=== PATIENT | male | born 1960 | race Caucasian/White ===

== ENCOUNTER 2017-02-23 15:22 | Emergency (ER) | payer SELFPAY ==
[~2017-02-23] VITALS: Ht 177.8 cm; Wt 75.0 kg
[2017-02-23 16:38] LABS: HEMATOCRIT 46.6 % (38.0-50.0); MCH 31.7 PG (29.0-34.0); MCHC 33.9 G/DL (30.0-36.0); MCV 93.4 FL (86-99); MEAN PLAT.VOLUME 9.8 uM^3 (9.0-12.4); PLATELET COUNT 219 K/uL (156-360); RBC DIS.WIDTH-CV 12.2 % (11.8-14.6); RBC DIS.WIDTH-SD 42.3 % (39-53); RED BLOOD COUNT 4.99 M/uL (4.00-5.50); WHITE BLOOD COUNT 7.7 K/uL (4.1-10.2)
[2017-02-23 16:48] LABS: CHLORIDE 102 mEq/L (99-109); POTASSIUM 3.9 mEq/L (3.7-5.4); SODIUM 140 mEq/L (136-147)
[2017-02-23 16:50] LABS: GLUCOSE 101 mg/dL (70-99)
[2017-02-23 16:51] LABS: ANION GAP 12 MEQ/L (2-14)
[2017-02-23 16:55] LABS: UREA NITROGEN (BUN) 10 mg/dL (9-23)
[2017-02-23 17:00] LABS: TROP-I INTERPRETATION NEGATIVE; TROPONIN-I < 0.01 ng/mL (0.0-0.30)
[2017-02-23 17:06] LABS: GFR ESTIMATE (CALCULATED) > 59 mL/min/
[2017-02-23] MEDS ORDERED: VENTOLIN HFA18 GM IH (17:25)
[2017-02-23 19:20] LABS: TROP-I INTERPRETATION NEGATIVE; TROPONIN-I < 0.01 ng/mL (0.0-0.30)
[2017-02-23 20:46] VITALS: BP 101/67
== END 2017-02-23 20:47 | disposition home or self-care (01) ==
LOC: EME 15:22
PROVIDERS: Emergency Medicine
DX: R07.89 Other chest pain (principal); R20.0 Anesthesia of skin; R20.2 Paresthesia of skin; F17.200 Nicotine dependence, unspecified, uncomplicated
CPT/HCPCS: 70450; 71020; 80048; 84484; 85027; 93005; 99281; 99285